=== PATIENT | male | born 1950 | race Two or more races ===

== ENCOUNTER 2019-07-02 14:17 | Observation (INO) ==
[2019-07-02] MEDS ORDERED: POTASSIUM CHLORIDE 20 MEQ TABLET PO PRN (17:42)
[2019-07-02] MEDS ORDERED: MORPHINE 4 MG/1 ML VIAL IV PRN (17:42)
[2019-07-02] MEDS ORDERED: ACETAMINOPHEN 325 MG TABLET PO PRN (17:42)
[2019-07-02] MEDS ORDERED: MAGNESIUM SULF RIDER 4 GM in PREMIX 1 EACH IV PRN (17:42)
[2019-07-02] MEDS ORDERED: ONDANSETRON 4 MG/2 ML VIAL IV PRN (17:42)
[2019-07-02] MEDS ORDERED: MAGNESIUM SULF RIDER 2 GM in PREMIX 1 EACH IV PRN (17:42)
[2019-07-02] MEDS: NITROGLYCERIN 2% OINT 1 INCH/GM PACK TOP SCH (17:57)
[2019-07-02] MEDS ORDERED: COLCHICINE 0.6 MG CAPSULE PO PRN (18:00)
[2019-07-02] MEDS ORDERED: GLUCAGON 1 MG VIAL IM PRN (18:09)
[2019-07-02] MEDS ORDERED: DEXTROSE 10% 250 ML BAG IV PRN (18:09)
[2019-07-02] MEDS ORDERED: ALBUTEROL/IPRATROPIUM 3 ML NEB RESP TX PRN (18:10)
[2019-07-02] MEDS: ENOXAPARIN 100 MG/ML SYRINGE SUBCUT SCH (18:16)
[2019-07-02 20:01] LABS: Basophils # 0.1 10*3/uL (0.0-0.2); Basophils % 0.9 % (0.0-0.8); Eosinophils # 0.2 10*3/uL (0.0-0.87); Eosinophils % 2.8 % (0.00-10.9); Hemoglobin 16.4 GM/DL (14.0-18.0); Immature Granulocytes % 0.3 %; Immature Granulocytes Absolute 0.02 #; Lymphocytes # 2.3 10*3/uL (1.4-4.0); Lymphocytes % 28.1 % (21.2-54.2); Mean Corpuscular HGB Conc 34.2 GM/DL (32-36); Mean Platelet Volume 9.7 FL (9.6-12.0); Monocytes % 8.9 % (1.7-12.7); Platelet Count 238 T/CUMM (130-400); Red Blood Count 5.16 MC/CUMM (3.8-5.5); Red Cell Distribution Width 12.9 % (9.3-17.3)
[2019-07-02 20:17] LABS: Albumin 3.9 G/DL (3.4-5.0); Bilirubin,Total 0.8 MG/DL (0.2-1.0); Calcium 9.4 MG/DL (8.5-10.1); Osmolality,Calculated 276.5 MOS/KG (273-304)
[2019-07-02] MEDS ORDERED: ATORVASTATIN 40 MG TABLET PO SCH (21:00)
[2019-07-02] MEDS: INSULIN LISPRO 100 UNIT/ML SUBCUT SCH (21:43)
[2019-07-02] MEDS: glipiZIDE 10 MG TABLET PO SCH (21:43)
[2019-07-02] MEDS: BUDESONIDE/FORMOTEROL 160-4.5 INHALER 6 GM INH SCH (21:44)
[2019-07-02] MEDS: METOPROLOL TARTRATE 100 MG TABLET PO SCH (21:44)
[2019-07-02 22:39] LABS: CKMB % 2.3 %; Troponin I < 0.015 NG/ML (0.00-0.045)
[2019-07-03] MEDS: BUDESONIDE/FORMOTEROL 160-4.5 INHALER 6 GM INH SCH ×6 (04:19→21:42)
[2019-07-03] MEDS: NITROGLYCERIN 2% OINT 1 INCH/GM PACK TOP SCH ×4 (04:19→17:20)
[2019-07-03 04:52] LABS: Basophils # 0.1 10*3/uL (0.0-0.2); Basophils % 1.1 % (0.0-0.8); Eosinophils # 0.3 10*3/uL (0.0-0.87); Hematocrit 44.9 VOL% (42.0-52.0); Immature Granulocytes % 0.2 %; Immature Granulocytes Absolute 0.01 #; Lymphocytes # 1.8 10*3/uL (1.4-4.0); Lymphocytes % 28.7 % (21.2-54.2); Mean Corpuscular HGB Conc 33.4 GM/DL (32-36); Mean Corpuscular Volume 93.7 FL (87-102); Mean Platelet Volume 9.3 FL (9.6-12.0); Monocytes % 9.7 % (1.7-12.7); Neutrophils % 56.3 % (38.7-73.9); Platelet Count 200 T/CUMM (130-400); Red Blood Count 4.79 MC/CUMM (3.8-5.5); Red Cell Distribution Width 12.8 % (9.3-17.3); White Blood Count 6.3 T/CUMM (4-12)
[2019-07-03 05:22] LABS: Calcium 8.5 MG/DL (8.5-10.1); Osmolality,Calculated 279.5 MOS/KG (273-304); Risk Ratio 4.05; VLDL CHOLESTEROL 72.4 MG/DL
[2019-07-03] MEDS: ENOXAPARIN 100 MG/ML SYRINGE SUBCUT SCH ×2 (06:00→17:19)
[2019-07-03] MEDS: METOPROLOL TARTRATE 100 MG TABLET PO SCH ×2 (08:27→21:40)
[2019-07-03] MEDS: glipiZIDE 10 MG TABLET PO SCH ×2 (08:27→21:41)
[2019-07-03] MEDS: ASPIRIN EC 325 MG TABLET PO SCH (08:27)
[2019-07-03] MEDS: amLODIPine 10 MG TABLET PO SCH (08:28)
[2019-07-03] MEDS: ALLOPURINOL 300 MG TABLET PO SCH (08:28)
[2019-07-03] MEDS: POTASSIUM CHLORIDE 20 MEQ TABLET PO PRN (08:28)
[2019-07-03] MEDS: PANTOPRAZOLE 40 MG TABLET PO SCH (08:31)
[2019-07-03] MEDS: INSULIN LISPRO 100 UNIT/ML SUBCUT SCH ×4 (08:32→21:43)
[2019-07-03] MEDS: LISINOPRIL 20 MG TABLET PO SCH (08:40)
[2019-07-03 09:23] LABS: CKMB % 1.6 %; Troponin I < 0.015 NG/ML (0.00-0.045)
[2019-07-03 19:54] LABS: Hepatitis B Core IgM Quant 0.07 Index; Hepatitis B Surface Ag Quant < 0.10 Index; Hepatitis B Surface Ag Result Negative (Negative); Hepatitis C Virus Ab Quant < 0.02 Index; Hepatitis C Virus Ab Result Negative (Negative)
[2019-07-03] MEDS ORDERED: ATORVASTATIN 20 MG TABLET PO SCH (21:00)
[2019-07-03] MEDS: MAGNESIUM CHLORIDE 64 MG TABLET PO SCH (21:40)
[2019-07-04] MEDS: NITROGLYCERIN 2% OINT 1 INCH/GM PACK TOP SCH ×3 (00:30→13:13)
[2019-07-04] MEDS: BUDESONIDE/FORMOTEROL 160-4.5 INHALER 6 GM INH SCH ×3 (03:38→11:05)
[2019-07-04 05:23] LABS: Albumin 3.3 G/DL (3.4-5.0); Bilirubin,Total 0.9 MG/DL (0.2-1.0); Osmolality,Calculated 278.5 MOS/KG (273-304); Total Protein 6.9 G/DL (6.4-8.3)
[2019-07-04 05:24] LABS: CKMB % 1.4 %; Troponin I < 0.015 NG/ML (0.00-0.045)
[2019-07-04] MEDS: ENOXAPARIN 100 MG/ML SYRINGE SUBCUT SCH (05:49)
[2019-07-04] MEDS: POTASSIUM CHLORIDE 20 MEQ TABLET PO PRN (05:51)
[2019-07-04] MEDS ORDERED: POTASSIUM CHLORIDE 20 MEQ TABLET PO PRN (07:12)
[2019-07-04] MEDS: LISINOPRIL 20 MG TABLET PO SCH (09:57)
[2019-07-04] MEDS: METOPROLOL TARTRATE 100 MG TABLET PO SCH (09:58)
[2019-07-04] MEDS: amLODIPine 10 MG TABLET PO SCH (10:00)
[2019-07-04] MEDS: MAGNESIUM CHLORIDE 64 MG TABLET PO SCH (10:00)
[2019-07-04] MEDS: glipiZIDE 10 MG TABLET PO SCH (10:00)
[2019-07-04] MEDS: ASPIRIN EC 325 MG TABLET PO SCH (10:00)
[2019-07-04] MEDS: PANTOPRAZOLE 40 MG TABLET PO SCH (10:00)
[2019-07-04] MEDS: ALLOPURINOL 300 MG TABLET PO SCH (10:03)
[2019-07-04] MEDS: INSULIN LISPRO 100 UNIT/ML SUBCUT SCH ×2 (10:29→12:51)
[2019-07-04] MEDS ORDERED: MAGNESIUM SULF RIDER 2 GM in PREMIX 1 EACH IV ONE (11:35)
[2019-07-04 12:45] VITALS: BP 129/75
== END 2019-07-04 14:25 | disposition home or self-care (01) ==
LOC: N.TELES → EDBD → SUATTDRO 15:42
PROVIDERS: ADMIT Internal Medicine; ATTEND Family Medicine